=== PATIENT | female | born 1950 | race Caucasian/White ===

== ENCOUNTER 2021-11-19 19:28 | Emergency (ER) | payer MEDICARE, BC ==
[~2021-11-19] VITALS: Ht 170.2 cm; Wt 52.2 kg
--- NOTE | 2021-11-19 19:47 | NUR ---
BIBS C/O "TAKING 2 1/2 TRAMADOL TABS, AFTER 2 HOURS FELT DIZZINESS, NAUSEA & PALPITATIONS. NOT FEELING RIGHT WOULD LIKE TO CHECKED OUT". PATIENT ALERT AND ORIENTED X3. AMBULATORY WITH NON LABORED BREATHING.
--- NOTE | 2021-11-19 19:59 | NUR ---
LAB AT BEDSIDE
[2021-11-19 20:17] LABS: BASOPHILS % (AUTO) 0.4 % (0.0-2.0); EOSINOPHILS % (AUTO) 1.9 % (0.0-6.0); HEMATOCRIT 41 % (33-45); HEMOGLOBIN 13.8 g/dL (11.5-14.8); LYMPHOCYTES # (AUTO) 1.2 K/uL (0.8-4.8); LYMPHOCYTES % (AUTO) 23.7 % (20.0-44.0); MEAN CORPUSCULAR HGB CONC 34 g/dl (31.0-36.0); MEAN CORPUSCULAR VOLUME 97 fL (82-100); MONOCYTES # (AUTO) 0.5 K/uL (0.1-1.30); NEUTROPHILS # (AUTO) 3.3 K/uL (1.8-8.9); PLATELET COUNT (AUTO) 218 K/uL (150-450); RED BLOOD CELL COUNT(AUTO) 4.21 MIL/uL (4.0-5.2); WHITE BLOOD COUNT (AUTO) 5.1 K/uL (4.3-11.0)
[2021-11-19 20:23] LABS: CALCIUM, SERUM 8.9 mg/dL (8.5-10.1); CARBON DIOXIDE 31 mmol/L (21-32); CHLORIDE 96 mmol/L (98-107); CREATININE 0.8 mg/dL (0.6-1.3); GLUCOSE 88 mg/dL (74-106); POTASSIUM 3.2 mmol/L (3.5-5.1); SODIUM SERUM 133 mmol/L (136-145); UREA NITROGEN, BLOOD 17 mg/dL (7-18)
[2021-11-19 20:35] LABS: ALANINE AMINOTRANSFERASE 51 U/L (12-78); ALKALINE PHOSPHATASE 66 U/L (46-116); ASPARTATE AMINOTRANSFERASE 34 U/L (15-37); BILIRUBIN,DIRECT 0.1 mg/dL (0.0-0.2); BILIRUBIN,TOTAL 0.4 mg/dL (0.2-1.0); TOTAL PROTEIN, SERUM 7.6 g/dL (6.4-8.2)
--- NOTE | 2021-11-19 20:35 | NUR ---
Patient discharged to home in stable condition. Written and verbal after care instructions given. Patient verbalizes understanding of instruction.
[2021-11-19 20:44] VITALS: BP 118/76
== END 2021-11-19 20:44 | disposition home or self-care (01) ==
LOC: ER 19:52
DX: T40.421A Poisoning by tramadol, accidental (unintentional), initial encounter (principal); Y92.89 Other specified places as the place of occurrence of the external cause
CPT/HCPCS: 36415; 71045-TC; 80048-TC; 80076-TC; 83880; 84484-TC; 85025-TC; 85730-TC

== ENCOUNTER 2022-10-18 14:16 | Emergency (ER) | payer BC, MEDICARE ==
[~2022-10-18] VITALS: Ht 172.7 cm; Wt 71.2 kg
--- NOTE | 2022-10-18 15:02 | NUR ---
TO ER 13, NO SIGNIFICANT CHANGE OF STATUS
[2022-10-18] MEDS ORDERED: LORAZEPAM INJ 2 MG/ML VIAL ONE (15:48)
[2022-10-18] MEDS: IV NS 0.9% 1,000 ML IV ONE (16:00)
[2022-10-18] MEDS: LORAZEPAM INJ 2 MG/ML VIAL IV ONE (16:05)
[2022-10-18] MEDS: Thiamine 100 MG in IV D5W 50 ML IV SCH (16:15)
--- NOTE | 2022-10-18 16:20 | NUR ---
devendra her neighbor [phone]
[2022-10-18] MEDS ORDERED: CHLO25CA22 PO (18:44)
[2022-10-18] MEDS ORDERED: ONDA4TAB11 PO (18:44)
[2022-10-18] MEDS ORDERED: CHLORDIAZEPOXIDE HCL 25 MG CAPSULE ONE (18:49)
[2022-10-18] MEDS: CHLORDIAZEPOXIDE HCL 25 MG CAPSULE PO ONE (19:00)
[2022-10-18 21:38] VITALS: BP 121/60
--- NOTE | 2022-10-18 21:38 | NUR ---
IV removed. Catheter intact and site benign. Pressure and 4x4 applied to site. No bleeding noted.Patient discharged to home in stable condition. Written and verbal after care instructions given. Patient verbalizes understanding of instruction.
== END 2022-10-18 21:39 | disposition home or self-care (01) ==
LOC: ER 14:19
DX: F10.239 Alcohol dependence with withdrawal, unspecified (principal); F10.229 Alcohol dependence with intoxication, unspecified; Y90.9 Presence of alcohol in blood, level not specified
CPT/HCPCS: 99284; 96365; 96375; J2060; J7060; J7030; J3411

== ENCOUNTER 2022-11-17 14:14 | Emergency (ER) | payer MEDICARE, BC ==
[~2022-11-17] VITALS: Ht 172.7 cm; Wt 55.8 kg
[~2022-11-17 14:14] MED LIST: CHLO25CA22 PO; ONDA4TAB11 PO
--- NOTE | 2022-11-17 14:22 | NUR ---
C/O RIGHT SIDED CP RADIATING TO RIGHT JAW ONE HOUR AGO. DENIES NAUSEA OR VOMITING. PT IS TACHYPNIC O2 SAT OF 100%. PT AMBULATED TO BED, CONNECTED TO [employer]. MADE AWARE RIGHT AWAY.
--- NOTE | 2022-11-17 14:25 | NUR ---
DR BAUER AT BEDSIDE FOR EVAL
--- NOTE | 2022-11-17 14:26 | NUR ---
EMT AT BEDSIDE FOR EKG
[2022-11-17 14:55] LABS: BASOPHILS % (AUTO) 0.3 % (0.0-2.0); EOSINOPHILS % (AUTO) 0.3 % (0.0-6.0); HEMATOCRIT 41 % (33-45); HEMOGLOBIN 13.3 g/dL (11.5-14.8); LYMPHOCYTES # (AUTO) 1.1 K/uL (0.8-4.8); LYMPHOCYTES % (AUTO) 11.6 % (20.0-44.0); MEAN CORPUSCULAR HGB CONC 33 g/dl (31.0-36.0); MEAN CORPUSCULAR VOLUME 97 fL (82-100); MONOCYTES # (AUTO) 0.5 K/uL (0.1-1.30); MONOCYTES % (AUTO) 5.6 % (2.0-12.0); NEUTROPHILS # (AUTO) 7.6 K/uL (1.8-8.9); NEUTROPHILS % (AUTO) 82.2 % (43.0-81.0); PLATELET COUNT (AUTO) 233 K/uL (150-450); RED BLOOD CELL COUNT(AUTO) 4.17 MIL/uL (4.0-5.2); WHITE BLOOD COUNT (AUTO) 9.2 K/uL (4.3-11.0)
[2022-11-17] MEDS ORDERED: ASPIRIN 325 MG TABLET ONE (15:00)
[2022-11-17] MEDS ORDERED: NITROGLYCERIN 0.4 MG/TAB BOTTLE ONE (15:00)
[2022-11-17] MEDS ORDERED: ASPIRIN 325 MG TABLET PO ONE (15:00)
[2022-11-17] MEDS ORDERED: NITROGLYCERIN 0.4 MG/TAB BOTTLE SL ONE (15:00)
[2022-11-17 15:02] LABS: CALCIUM, SERUM 8.7 mg/dL (8.5-10.1); CARBON DIOXIDE 25 mmol/L (21-32); CHLORIDE 98 mmol/L (98-107); CREATININE 0.8 mg/dL (0.6-1.3); GLUCOSE 150 mg/dL (74-106); POTASSIUM 3.4 mmol/L (3.5-5.1); SODIUM SERUM 135 mmol/L (136-145); UREA NITROGEN, BLOOD 12 mg/dL (7-18)
[2022-11-17 15:14] LABS: ALANINE AMINOTRANSFERASE 39 U/L (12-78); ALKALINE PHOSPHATASE 70 U/L (46-116); ASPARTATE AMINOTRANSFERASE 29 U/L (15-37); BILIRUBIN,DIRECT 0.1 mg/dL (0.0-0.2); BILIRUBIN,TOTAL 0.4 mg/dL (0.2-1.0); TOTAL PROTEIN, SERUM 7.3 g/dL (6.4-8.2)
--- NOTE | 2022-11-17 15:29 | NUR ---
SWAB FOR COVID19 SENT TO LAB
[2022-11-17] MEDS ORDERED: POTASSIUM CHLORIDE 20 MEQ TAB.PRT.SR PO ONE ×2 (16:20→16:30)
[2022-11-17] MEDS ORDERED: IV NS 0.9% 1,000 ML IV ONE (18:00)
--- NOTE | 2022-11-17 18:49 | NUR ---
[facility] CALLED AUTO EMISSIONS TECHNICIAN PAGED.
[2022-11-17] MEDS ORDERED: IV NS 0.9% 250 ML BAG IV ONE (19:30)
--- NOTE | 2022-11-17 20:37 | NUR ---
Patient does not wish to proceed with medical care recommended by Dr. Deras. Patient given information related to possible complications, up to and including , which could occur as a result of leaving the hospital at this time. Patient verbalizes understanding of risks involved due to leaving against medical advice. Patient has signed AMA form.
[2022-11-19 18:07] VITALS: BP 111/67
== END 2022-11-17 20:37 | disposition left against medical advice (07) ==
LOC: ER 14:20
DX: R07.9 Chest pain, unspecified (principal); Z20.822 Contact with and (suspected) exposure to COVID-19; E87.6 Hypokalemia; I70.0 Atherosclerosis of aorta; Z53.29 Procedure and treatment not carried out because of patient's decision for other reasons
CPT/HCPCS: 99285; 96360; 71045; 87426; 93005; 85025; 80048; 80076; 36415; 84484 ×3; 87081; 83880; J7050; C9803

== ENCOUNTER 2024-08-09 12:18 | Emergency (ER) | payer MEDICARE, BC ==
[~2024-08-09] VITALS: Ht 172.7 cm; Wt 55.8 kg
[2024-08-09 12:20] VITALS: TEMP 98.1
[2024-08-09 12:57] LABS: BASOPHILS % (AUTO) 0.5 % (0.0-2.0); EOSINOPHILS % (AUTO) 0.4 % (0.0-6.0); HEMATOCRIT 36 % (33-45); HEMOGLOBIN 12.4 g/dL (11.5-14.8); LYMPHOCYTES # (AUTO) 0.9 K/uL (0.8-4.8); LYMPHOCYTES % (AUTO) 13.9 % (20.0-44.0); MEAN CORPUSCULAR HEMOGLOBIN 33 PG (26.0-33.0); MEAN CORPUSCULAR HGB CONC 34 g/dl (31.0-36.0); MEAN CORPUSCULAR VOLUME 97 fL (82-100); MONOCYTES # (AUTO) 0.4 K/uL (0.1-1.30); MONOCYTES % (AUTO) 5.6 % (2.0-12.0); NEUTROPHILS # (AUTO) 5.3 K/uL (1.8-8.9); NEUTROPHILS % (AUTO) 79.6 % (43.0-81.0); PLATELET COUNT (AUTO) 226 K/uL (150-450); RED BLOOD CELL COUNT(AUTO) 3.74 MIL/uL (4.0-5.2); RED CELL DISTRIBUTION WIDTH 12.7 % (11.5-15.0); WHITE BLOOD COUNT (AUTO) 6.6 K/uL (4.3-11.0)
[2024-08-09] MEDS ORDERED: ONDANSETRON HCL/PF 4 MG/2 ML VIAL ONE ×2 (12:59→14:12)
[2024-08-09] MEDS: ONDANSETRON HCL/PF 4 MG/2 ML VIAL IV ONE ×2 (13:05→14:36)
[2024-08-09] MEDS: IV NS 0.9% 500 ML BAG IV ONE (13:05)
[2024-08-09] MEDS ORDERED: ONDA4TAB5 PO (13:07)
[2024-08-09 13:14] LABS: CARBON DIOXIDE 26 mmol/L (21-32); CHLORIDE 96 mmol/L (98-107); CREATININE 0.6 mg/dL (0.6-1.3); GLUCOSE 104 mg/dL (74-106); POTASSIUM 3.8 mmol/L (3.5-5.1); SODIUM SERUM 131 mmol/L (136-145); UREA NITROGEN, BLOOD 8 mg/dL (7-18)
[2024-08-09 15:20] VITALS: BP 110/55; O2SAT 99
== END 2024-08-09 15:10 | disposition home or self-care (01) ==
LOC: ER 12:21
DX: F10.139 Alcohol abuse with withdrawal, unspecified (principal); R11.0 Nausea; R42 Dizziness and giddiness; R53.1 Weakness; R53.83 Other fatigue; Z60.2 Problems related to living alone; Y90.0 Blood alcohol level of less than 20 mg/100 ml
CPT/HCPCS: 99285; 96374; 93005; 71045; 96376; 85025; 80048; 36415; 84484; 80320; J2405 ×2; J7030; G0480